=== PATIENT | female | born 1955 | race Two or more races ===

== ENCOUNTER → 2025-07-17 | Outpatient (CLI) | payer MEDICARE, SELFPAY ==
--- NOTE | 2025-07-17 | XR_ITS ---
EXAMINATION: PA lateral chest 2 views TECHNIQUE: Upright PA and lateral chest 2 views Date and time: July 17, 2025, 1209 hours, comparison September 30, 2010 INDICATIONS: Weakness beginning 2 weeks ago FINDINGS: Normal heart size Lungs are clear. Prominent osteopenia IMPRESSION: No active disease
--- NOTE | 2025-07-17 15:09 | XR_ITS ---
Examination: Pelvic ultrasound, transabdominal, complete Technique: Transabdominal ultrasound of the pelvis performed using grayscale imaging Date and time of exam: July 17, 2025, 1518 hours INDICATIONS: Weight loss and severe pelvic tenderness the last 2 weeks FINDINGS: Uterus 6.2 cm endometrial stripe 0.3 cm No uterine mass Ovaries obscured by bowel gas IMPRESSION: Limited study No uterine mass
--- NOTE | 2025-07-17 15:09 | XR_ITS ---
Examination: Retroperitoneal ultrasound, complete Technique: Multiple high resolution grayscale images of the retroperitoneum obtained, including kidneys and bladder. Exam date and time: July 17, 2025, 1524 hours INDICATIONS: Weight loss severe weakness the last 2 weeks FINDINGS: Right kidney 9.7 cm renal cortex 1.2 cm Left kidney 9.8 cm renal cortex 0.8 cm Mild left hydronephrosis 4 mm lower pole left renal calculus Lower pole 11 mm cyst Mild bilateral renal scarring Contracted urinary bladder no bladder mass IMPRESSION: Small kidneys with bilateral renal cortical thinning Mild left hydronephrosis 12 mm lower pole left renal calculus,., Consider CT stone study follow-up
--- NOTE | 2025-07-17 15:09 | XR_ITS ---
Examination: Abdomen sonogram, complete Date and time of exam: July 17, 2025, 1540 hours INDICATIONS: Weight loss severe weakness beginning 2 weeks ago. Technique: Multiple real-time grayscale transabdominal sonographic images of the abdomen have been obtained. Findings: Negative for gallstones Gallbladder wall 10 mm with possible edema Common bile duct 0.2 cm Pancreatic head 2.0 cm Aorta not enlarged. Liver 12.5 cm fatty infiltration Normal hepatopetal portal venous Patent IVC Right kidney 8.9 cm renal cortex 1.3 cm Left kidney 9.6 cm renal cortex 1.2 cm Mild left hydronephrosis 10 mm lower pole left renal calculus Small lower pole left renal cyst Spleen 8.1 cm IMPRESSION: Recommend HIDA scan or MRCP follow-up to exclude acalculous cholecystitis 10 mm lower pole left renal calculus, mild left hydronephrosis
== END | disposition home or self-care (01) ==
PROVIDERS: PCP Internal Medicine; Referring Provider Internal Medicine; Visit Provider Internal Medicine
DX: N13.30 Unspecified hydronephrosis (principal); N20.0 Calculus of kidney; R53.1 Weakness; R63.4 Abnormal weight loss
CPT/HCPCS: 71046; 76700; 76770; 76856

== ENCOUNTER → 2025-08-08 | Outpatient (CLI) | payer MEDICARE, SELFPAY ==
[2025-08-08 10:29] LABS: Misc Send Out* See Sep Rpt
== END | disposition home or self-care (01) ==
LOC: SLDO 10:23
PROVIDERS: PCP Family Medicine; Referring Provider Family Medicine; Visit Provider Family Medicine
DX: N13.30 Unspecified hydronephrosis (principal)
CPT/HCPCS: 82340; 82507; 82570; 83735; 83945; 83986; 84105; 84133; 84300; 84392; 84560

== ENCOUNTER → 2025-08-28 | Outpatient (CLI) | payer MEDICARE, SELFPAY ==
[2025-08-28 14:46] LABS: Albumin, Serum 4.8 gm/dL (3.4-4.8); Anion Gap 9 (7-16); BUN/Creatinine Ratio 17 Ratio (12-20); Blood Urea Nitrogen 24 mg/dL (9-23); Calcium 9.6 mg/dL (8.3-10.6); Calcium (Corrected) 9.6 mg/dL (8.5-10.1); Carbon Dioxide 24.6 mMol/L (20.0-31.0); Chloride 105 mMol/L (98-107); Creatinine (Component) 1.4 mg/dL (0.6-1.3); Glucose 205 mg/dL (74-106); Osmolality,Calculated 287 (275-295); Phosphorous 5.1 mg/dL (2.4-5.1); Potassium 4.3 mMol/L (3.4-5.1); Sodium 139 mMol/L (136-145); eGFR 41 See Note
== END | disposition home or self-care (01) ==
LOC: COPL 12:16
PROVIDERS: PCP Internal Medicine; Referring Provider Internal Medicine; Visit Provider Internal Medicine
DX: N20.0 Calculus of kidney (principal)
CPT/HCPCS: 36415; 80069

== ENCOUNTER → 2025-09-25 | Outpatient (CLI) | payer MEDICARE, SELFPAY ==
--- NOTE | 2025-09-25 13:00 | XR_ITS ---
Study: Abdomen pelvis CT INDICATION: Renal calculus noted from ultrasound study. TECHNIQUE: 3 mm slice thickness with 30 mL of Isovue-300. 3 mm coronal and sagittal reformats. Delayed sequence acquisition. Radiation dose 553 mGy centimeters with dose reduction technique. 2067 images at 1408 hours 25 September 2025. FINDINGS: The the patient was imaged from the base of the heart to the subtrochanteric regions. The heart, lung bases and pleural spaces are normal. The gallbladder, kidneys, right ureter and urinary bladder are free from calculi. There is a 16.6 x 6.4 mm calculus impacted in the upper aspect of the left ureter at the level of the L3 vertebral body creating mild left hydronephrosis. There is no ascites or free abdominal air. Parenchyma of the liver, pancreas, spleen, kidneys, adrenal glands and periaortic lymph node region is normal. The stomach, duodenum, small bowel, appendix and colon are unremarkable. The urinary bladder is substantially filled and free from masses. The uterus is vertically oriented. There is no ovarian pathology. Spinal alignment is normal. There is advanced demineralization and no focal lesion. The aorta and cava are normal in caliber. There is moderately severe aortic plaque burden. The IMPRESSION: 1. Obstructing large calculus of the upper left ureter. 2. Atherosclerotic aorta
== END | disposition home or self-care (01) ==
PROVIDERS: PCP Internal Medicine; Referring Provider Internal Medicine; Visit Provider Internal Medicine
DX: I70.0 Atherosclerosis of aorta (principal); N20.1 Calculus of ureter
CPT/HCPCS: 74177; A4649; Q9967